=== PATIENT | male | born 1990 | race Two or more races ===

== ENCOUNTER 2017-08-08 09:28 | Emergency (ER) | payer OTHER ==
[~2017-08-08] VITALS: Ht 175.3 cm; Wt 82.0 kg
[2017-08-08 10:21] LABS: HEMATOCRIT 46.2 % (39.2-51.8); HEMOGLOBIN 15.8 g/dL (13.7-18.0); WHITE BLOOD COUNT 4.6 x10^3/uL (3.4-10)
[2017-08-08 10:33] LABS: BLOOD UREA NITROGEN 10 mg/dL (7-18)
[2017-08-08 11:00] VITALS: BP 134/88
== END 2017-08-08 11:31 | disposition home or self-care (01) ==
LOC: ED 10:00
DX: R31.0 Gross hematuria (principal)
CPT/HCPCS: 36415; 74000; 80048; 81003; 82040; 85025; 85610; 85730; 99285